=== PATIENT | female | born 1945 | race Hispanic/Latino ===

== ENCOUNTER 2022-11-20 18:39 | Observation (INO) | payer MEDICARE ==
[~2022-11-20] VITALS: Ht 154.9 cm; Wt 68.9 kg
[2022-11-20] MEDS ORDERED: HYDR25TA PO (19:25)
[2022-11-20] MEDS ORDERED: LISI40TA9 PO (19:25)
[2022-11-20] MEDS ORDERED: LABE200T7 PO (19:26)
[2022-11-20 19:51] LABS: BASOPHILS # (AUTO) 0.04 K/uL (0.00-0.20); BASOPHILS % (AUTO) 0.5 % (0.0-5.0); EOSINOPHILS # (AUTO) 0.05 K/uL (0.00-0.70); EOSINOPHILS % (AUTO) 0.6 % (0.0-8.0); HEMATOCRIT 40.3 % (36-48); IMMATURE GRANULOCYTE ABSOLUTE 0.03 K/uL (0-1); LYMPHOCYTES # (AUTO) 1.5 K/uL (1.0-4.8); LYMPHOCYTES % (AUTO) 17.4 % (21.0-51.0); MEAN CORPUSCULAR VOLUME 87.8 fL (79-99); MONOCYTES # (AUTO) 0.8 K/uL (0.1-1.0); MONOCYTES % (AUTO) 9.3 % (3.0-13.0); NEUTROPHILS # (AUTO) 6.4 K/uL (1.8-7.7); NEUTROPHILS % (AUTO) 71.9 % (40.0-77.0); PLATELET COUNT (AUTO) 222 K/uL (130-400); RED BLOOD CELL COUNT(AUTO) 4.59 MIL/uL (4.00-5.50); WHITE BLOOD COUNT (AUTO) 8.8 K/uL (4.8-10.8)
[2022-11-20 20:04] LABS: CREATININE 0.6 mg/dL (0.5-1.5); POTASSIUM 3.3 mmol/L (3.5-5.1)
[2022-11-20 20:22] LABS: B-TYPE NATRIURETIC PEPTIDE 13 pg/mL (0-100)
[2022-11-20 20:25] LABS: ALBUMIN 3.6 g/dL (3.5-5.0); BILIRUBIN,TOTAL 0.4 mg/dL (0.2-1.0); MAGNESIUM 1.9 mg/dL (1.80-2.40); TOTAL PROTEIN, SERUM 6.9 g/dL (6.0-8.3)
[2022-11-20] MEDS ORDERED: ASPIRIN 81MG CHEW TAB PO ONE (21:00)
[2022-11-20] MEDS ORDERED: ACETAMINOPHEN 325 MG TAB PO PRN ×2 (22:00)
[2022-11-20] MEDS ORDERED: MORPHINE 4 MG SYG IV PRN (22:00)
[2022-11-20] MEDS ORDERED: MORPHINE 2 MG SYG IV PRN (22:00)
[2022-11-20] MEDS ORDERED: ONDANSETRON 4MG INJ IV PRN (22:00)
[2022-11-20] MEDS ORDERED: IOHEXOL 350 MG/ML 100ML INFUS..BTL IV ONE (22:06)
[2022-11-20] MEDS ORDERED: MAGNESIUM 2GM PREMIX 50ML 50 ML IV PRN (23:30)
[2022-11-20] MEDS ORDERED: KCL 20 MEQ ERTAB PO PRN (23:30)
[2022-11-20] MEDS ORDERED: POTASSIUM CHLORIDE 10% ELIXIR 20 MEQ/15 ML UDCUP PO PRN (23:30)
[2022-11-20] MEDS ORDERED: POTASSIUM CHLORIDE 20MEQ/100ML 100 ML IV PRN (23:30)
[2022-11-20] MEDS: NITROGLYCERIN 1GM OINT 1 INCH/1GM TD SCH (23:36)
[2022-11-21 02:18] LABS: APPEARANCE,URINE CLEAR (CLEAR); BILIRUBIN,URINE NEGATIVE (NEGATIVE); COLOR,URINE LIGHT-YELLOW (YELLOW); GLUCOSE, URINE (UA) NEGATIVE (NEGATIVE); KETONES,URINE NEGATIVE (NEGATIVE); LEUKOCYTE ESTERASE ,URINE NEGATIVE Leu/uL (NEGATIVE); NITRATE,URINE NEGATIVE (NEGATIVE); OCCULT BLOOD,URINE NEGATIVE (NEGATIVE); PROTEIN,URINE NEGATIVE (NEGATIVE); UROBILINOGEN,URINE 0.2 mg/dL (0.2-1.0)
[2022-11-21 02:19] LABS: ADD UA MICROSCOPIC NO
[2022-11-21 02:20] VITALS: BP 127/53; PULSE 84; RESP 18
[2022-11-21 03:00] VITALS: O2SAT 98
[2022-11-21 04:00] VITALS: BP 136/69; PULSE 77; RESP 17
[2022-11-21] MEDS: NITROGLYCERIN 1GM OINT 1 INCH/1GM TD SCH (05:23)
[2022-11-21 06:55] LABS: BASOPHILS # (AUTO) 0.03 K/uL (0.00-0.20); BASOPHILS % (AUTO) 0.4 % (0.0-5.0); EOSINOPHILS # (AUTO) 0.05 K/uL (0.00-0.70); EOSINOPHILS % (AUTO) 0.7 % (0.0-8.0); HEMATOCRIT 38.3 % (36-48); IMMATURE GRANULOCYTE ABSOLUTE 0.03 K/uL (0-1); LYMPHOCYTES # (AUTO) 1.7 K/uL (1.0-4.8); LYMPHOCYTES % (AUTO) 21.5 % (21.0-51.0); MEAN CORPUSCULAR HEMOGLOBIN 29.5 pg (27.0-33.0); MEAN CORPUSCULAR HGB CONC 34.2 g/dL (32.0-36.0); MEAN CORPUSCULAR VOLUME 86.3 fL (79-99); MONOCYTES # (AUTO) 0.8 K/uL (0.1-1.0); MONOCYTES % (AUTO) 10.2 % (3.0-13.0); NEUTROPHILS # (AUTO) 5.1 K/uL (1.8-7.7); NEUTROPHILS % (AUTO) 66.8 % (40.0-77.0); PLATELET COUNT (AUTO) 208 K/uL (130-400); RED BLOOD CELL COUNT(AUTO) 4.44 MIL/uL (4.00-5.50); WHITE BLOOD COUNT (AUTO) 7.7 K/uL (4.8-10.8)
[2022-11-21 07:07] LABS: CREATININE 0.4 mg/dL (0.5-1.5); MAGNESIUM 2.1 mg/dL (1.80-2.40); PHOSPHORUS 3.8 mg/dL (2.5-4.9); POTASSIUM 3.8 mmol/L (3.5-5.1)
[2022-11-21 08:00] VITALS: BP 122/59; PULSE 77; RESP 16
[2022-11-21] MEDS ORDERED: ASPI-1197 PO (08:39)
[2022-11-21] MEDS ORDERED: ASPIRIN 81MG CHEW TAB PO SCH (09:00)
[2022-11-21] MEDS ORDERED: FAMOTIDINE 20MG TAB PO SCH (09:00)
[2022-11-21 10:21] VITALS: O2SAT 98
== END 2022-11-21 11:00 | disposition home or self-care (01) ==
LOC: EDH 18:39 → EDHIP 21:00 → INTOOBSV 21:00 → 4AH 11-21 02:13
PROVIDERS: ADMIT Internal Medicine; ATTEND Internal Medicine
DX: I20.0 Unstable angina (principal); E87.6 Hypokalemia; I10 Essential (primary) hypertension; Z86.12 Personal history of poliomyelitis; Z79.82 Long term (current) use of aspirin; Z79.899 Other long term (current) drug therapy
CPT/HCPCS: 96365; 99285; 82550; 83735 ×2; 84484 ×3; 80053; 83880; 85025 ×2; 36415 ×2; 71045; 71260; 74177; 93005 ×2; 96366; 84100; 80048; 86850; 86900; 86901; 81003; J3475; Q9967; G0378 ×3

== ENCOUNTER 2024-05-15 13:29 | Emergency (ER) | payer MEDICARE ==
[~2024-05-15] VITALS: Ht 157.5 cm; Wt 69.9 kg
[~2024-05-15 13:29] MED LIST: ASPI-1197 PO; HYDR25TA PO; LABE200T7 PO; LISI40TA9 PO
--- NOTE | 2024-05-15 13:53 | EKG ---
[facility] Test Date: 2024-05-15 Test Time: 13:25:57 Pat Name: HOLDEN JOHNSTON Department: ED Room: Gender: F Office Nurse: [id number] : 1945 Requested By: DAVID GIRARD Order Number: [id number] Reading MD: Vijay Ward Measurements Intervals [place] Rate: 87 P: 23 AR: 195 QRS: 95 QRSD: 130 T: -30 QT: 402 QTc: 483 Interpretive Statements Sinus rhythm RBBB and LPFB Compared to ECG 11/20/2022 21:01:31 Left posterior fascicular block now present Electronically Signed On 05-15-2024 17:45:27 STATISTICIAN MATHEMATICAL by Vijay Ward Please click the below link to view image of tracing.
[2024-05-15 14:38] LABS: BASOPHILS # (AUTO) 0.03 K/uL (0.00-0.20); BASOPHILS % (AUTO) 0.4 % (0.0-5.0); EOSINOPHILS # (AUTO) 0.04 K/uL (0.00-0.70); EOSINOPHILS % (AUTO) 0.5 % (0.0-8.0); IMMATURE GRANULOCYTE ABSOLUTE 0.02 K/uL (0-1); LYMPHOCYTES # (AUTO) 1.2 K/uL (1.0-4.8); LYMPHOCYTES % (AUTO) 16.8 % (21.0-51.0); MEAN CORPUSCULAR HEMOGLOBIN 29.1 pg (27.0-33.0); MEAN CORPUSCULAR HGB CONC 32.4 g/dL (32.0-36.0); MEAN CORPUSCULAR VOLUME 89.9 fL (79-99); MONOCYTES # (AUTO) 0.6 K/uL (0.1-1.0); MONOCYTES % (AUTO) 7.5 % (3.0-13.0); NEUTROPHILS # (AUTO) 5.5 K/uL (1.8-7.7); NEUTROPHILS % (AUTO) 74.5 % (40.0-77.0); PLATELET COUNT (AUTO) 220 K/uL (130-400); RED BLOOD CELL COUNT(AUTO) 4.67 MIL/uL (4.00-5.50); RED CELL DISTRIBUTION WIDTH 13.6 % (11.0-15.5); WHITE BLOOD COUNT (AUTO) 7.3 K/uL (4.8-10.8)
[2024-05-15 14:51] LABS: INR <= 0.93 (0.85-1.15)
[2024-05-15 14:56] LABS: CREATININE 0.4 mg/dL (0.5-1.0); POTASSIUM 3.6 mmol/L (3.5-5.1)
--- NOTE | 2024-05-15 14:56 | HMCIMG ---
CHEST 1VW REASON: sob COMPARISON: 11/20/2022 FINDINGS: Single view of the chest was obtained. Lungs are clear. Heart size is normal. There is no pulmonary vascular congestion. There is marked elevation of the right hemidiaphragm, unchanged. Mediastinum and bony thorax appear unremarkable. IMPRESSION: 1. Markedly elevated right hemidiaphragm, unchanged. 2. Otherwise normal exam.
[2024-05-15 15:02] LABS: MAGNESIUM 1.9 mg/dL (1.80-2.40)
[2024-05-15 15:41] LABS: B-TYPE NATRIURETIC PEPTIDE 86 pg/mL (0-100)
[2024-05-15] MEDS: LAbetaLOL 20MG SYG IV ONE (16:08)
[2024-05-15] MEDS: LAbetaLOL 20MG VIAL ONE (16:08)
[2024-05-15] MEDS: hydrALAZine 20MG/ML VIAL IV ONE (16:16)
[2024-05-15 16:40] VITALS: BP 166/64; PULSE 92; RESP 20; TEMP 97.9; O2SAT 98
--- NOTE | 2024-05-15 16:51 | ERN ---
General Chief Complaint: Hypertension Stated Complaint: HIGH BLOOD PRESSURE, CP Time Seen by MD: 13:32 Time Seen by Midlevel: 13:32 Source: patient History of Present Illness Initial Comments Patient is a 79-year-old female with a past medical history of hypertension presenting to the emergency department for evaluation of an elevated blood pressure reading that she obtained at home. Patient reports developing some upper back pain so she checked her blood pressure and it was 180 systolic. She normally takes amlodipine in the morning and lisinopril in the afternoon. She does report taking her medications as prescribed today. She does state that her manager math stopped her hydrochlorothiazide that she has been taking proximally two weeks ago. She believes that she may need this medication. Allergies: Coded Allergies: No Known Drug Allergies (Unverified Allergy, Unknown, 11/20/22) Home Meds Reported Medications Labetalol HCl (Labetalol HCl) 200 Mg Tablet, 200 MG PO BID, TAB 11/20/22 Lisinopril (Lisinopril) 40 Mg Tablet, 40 MG PO AM, TAB 11/20/22 Discontinued Reported Medications Hydrochlorothiazide (Hydrochlorothiazide) 25 Mg Tablet, 25 MG PO AM, TAB 11/20/22 Discontinued Scripts Aspirin (Aspirin) 81 Mg Tab.chew, 81 MG PO DAILY, #30 TAB.CHEW 0 Refills Prov:CRISTOBAL BUSTILLO Cherie SANTANAP 11/21/22 Past Medical History Past Medical History: Hypertension Past Surgical History: Appendectomy, Cholecystectomy Family History Family History: CAD, DM, HTN Social History Social History: Negative, Lives with family ROS Dictation CONSTITUTIONAL: Negative except for HPI HEAD/FACE: Negative except for HPI EENT: Negative except for HPI RESPIRATORY: Negative except for HPI GASTROINTESTINAL/ABDOMINAL: Negative except for HPI GENITOURINARY: Negative except for HPI MUSCULOSKELETAL: Negative except for HPI INTEGUMENTARY: Negative except for HPI NEUROLOGICAL/PSYCH: Negative except for HPI HEMATOLOGIC/LYMPHATIC: Negative except for HPI All Systems Negative, Except as noted above. 13 point review of systems assessed and all negative except for above. Physical Exam Physical Exam Dictation Vital Signs reviewed General Appearance: Alert, oriented x 3, no acute distress, well developed, nourished. Head and Face: non-traumatic. Eyes: PERRL, pink conjunctivas, eyelid no trauma, anterior chamber with arcus senilis. Ears: Pinnas intact and no signs of trauma or erythema ear canals clear and no discharge TM no erythema Nose: No discharge, no bleeding. Oropharynx: Mouth normal, tongue pink, pharynx clear,no erythema, tonsils no exudates, no abscesses noted, mucous membrane moist Neck: Supple, non-tender, no thyromegaly, no masses, no JVD, no bruits Breast:Deferred Chest:No tenderness, no crepitus, no paradoxical movement, no retractions Lungs:Clear, well-ventilated, symmetric, no rales, no wheezing, no rhonchi, no stridor, good breath sounds bilaterally Heart: Regular rate, regular rhythm, no murmur, no gallops Vascular: no peripheral edema, Abdomen: Soft, positive bowel sounds, nondistended, no guarding, nontender, no rebound, no masses no hepatomegaly, no splenomegaly, no Lr's sign, no hernias. Rectal: Deferred Genital: Deferred Neurological: Normal speech, motor function intact, sensory function intact Musculoskeletal: Neck nontender, full range of motion, back nontender, full range of motion, Extremities: nontender, full range of motion Skin: Color pink, dry, no turgor, no rash, no lacerations, no abrasions, no contusions. Lymphatic: Deferred Results Laboratory and Microbiology Lab and Micro Result Laboratory Tests Test 05/15/24 14:00 White Blood Count 7.3 K/uL (4.8-10.8) Red Blood Count 4.67 MIL/uL (4.00-5.50) Hemoglobin 13.6 g/dL (12.0-16.0) Hematocrit 42.0 % (36-48) Mean Corpuscular Volume 89.9 fL (79-99) Mean Corpuscular Hemoglobin 29.1 pg (27.0-33.0) Mean Corpuscular Hemoglobin Concent 32.4 g/dL (32.0-36.0) Red Cell Distribution Width 13.6 % (11.0-15.5) Platelet Count 220 K/uL (130-400) Mean Platelet Volume 10.2 fL (7.5-10.5) Immature Granulocyte % (Auto) 0.3 % (0-1) Neutrophils (%) (Auto) 74.5 % (40.0-77.0) Lymphocytes (%) (Auto) 16.8 % (21.0-51.0) L Monocytes (%) (Auto) 7.5 % (3.0-13.0) Eosinophils (%) (Auto) 0.5 % (0.0-8.0) Basophils (%) (Auto) 0.4 % (0.0-5.0) Neutrophils # (Auto) 5.5 K/uL (1.8-7.7) Lymphocytes # (Auto) 1.2 K/uL (1.0-4.8) Monocytes # (Auto) 0.6 K/uL (0.1-1.0) Eosinophils # (Auto) 0.04 K/uL (0.00-0.70) Basophils # (Auto) 0.03 K/uL (0.00-0.20) Absolute Immature Granulocyte (auto 0.02 K/uL (0-1) Nucleated Red Blood Cells 0.0 % (0.0-0.19) Prothrombin Time 10.0 SEC (9.6-11.6) Prothromb Time International Ratio <= 0.93 (0.85-1.15) Activated Partial Thromboplast Time 28.0 SEC (26.3-35.5) Sodium Level 143 mmol/L (136-145) Potassium Level 3.6 mmol/L (3.5-5.1) Chloride Level 107 mmol/L (101-111) Carbon Dioxide Level 30 mmol/L (21-32) Blood Urea Nitrogen 10 mg/dL (7-18) Creatinine 0.4 mg/dL (0.5-1.0) L Glomerular Filtration Rate Calc 101 mL/min (>90) Random Glucose 106 mg/dL (70-105) H Total Calcium 9.4 mg/dL (8.5-10.1) Magnesium Level 1.90 mg/dL (1.80-2.40) Total Creatine Kinase 85 U/L (21-232) Troponin I High Sensitivity < 4 ng/L (4-50) L B-Type Natriuretic Peptide 86 pg/mL (0-100) Labs Reviewed?: Yes MDM MDM: Patient is a 79-year-old female with a past medical history of hypertension presenting to the emergency department for evaluation of an elevated blood pressure reading that she obtained at home. Patient reports developing some upper back pain so she checked her blood pressure and it was 180 systolic. She normally takes amlodipine in the morning and lisinopril in the afternoon. She does report taking her medications as prescribed today. She does state that her manager math stopped her hydrochlorothiazide that she has been taking proximally two weeks ago. She believes that she may need this medication. On physical examination the patient was in no acute distress. Her initial vital signs reveal an initial blood pressure of 188/89. A cardiac workup was initiated. Her CBC is unremarkable. Her chemistries are unremarkable. Her cardiac enzymes are negative. Her EKG does not show any evidence of a STEMI or bundle branch blocks. Patient has remained asymptomatic in the emergency department. She was given 10 mg of hydralazine IV with improvement in blood pressure 166/64. Patient was offered admission for observation but she was refusing willing to be discharged home. Differential diagnosis: Hypertensive urgency, hypertensive emergency, uncontrolled hypertension There are no social concerns with this patient. Prescription drug management Prescriptions will include: None Medical management and examination interpretation discussions were had by me with other qualified healthcare professionals as indicated for the patient's care. ED Course Orders Procedure Category Date Status Time 12 Lead Ekg Tracing- EKG 05/15/24 Resulted Technical 13:33 Cbc With Differential LAB 05/15/24 Complete 13:33 Basic Metabolic Panel LAB 05/15/24 Complete 13:33 B-Type Natriuretic LAB 05/15/24 Complete Peptide 13:33 Creatine Kinase, Total LAB 05/15/24 Complete 13:33 Troponin I High LAB 05/15/24 Complete Sensitivity 13:33 Pt And Ptt LAB 05/15/24 Complete 13:33 Magnesium LAB 05/15/24 Complete 13:33 Chest 1vw RAD 05/15/24 Resulted 13:33 Labetalol 20mg Syg PHA 05/15/24 Complete (Trandate 20mg Syg) 16:00 Labetalol 20ml Vial PHA 05/15/24 Complete (Trandate 20mg Vial) 16:03 Hydralazine 20mg Inj PHA 05/15/24 Complete (Apresoline 20mg In 16:30 Current Medications Medications (Trade) Dose Ordered Sig/Dallin Route PRN Reason Start Time Stop Time Status Last Admin Dose Admin Hydralazine HCl (APRESOLine 20MG INJ) 10 mg ONCE ONCE IV 05/15/24 16:30 05/15/24 16:31 DC 05/15/24 16:16 Labetalol HCl (TRANdate 20MG SYG) 10 mg ONCE ONCE IV 05/15/24 16:00 05/15/24 16:04 DC Labetalol HCl (TRANdate 20MG VIAL) 100 mg STK-MED ONCE .ROUTE 05/15/24 16:03 05/15/24 16:03 DC Vital Signs Date Time Temp Pulse Resp B/P (MAP) Pulse Ox O2 Delivery O2 Flow Rate FiO2 05/15/24 16:40 97.9 92 20 166/64 98 Room Air* 0 21 05/15/24 15:51 97.9 88 20 180/79 98 Room Air* 0 21 05/15/24 14:52 97.9 90 20 188/89 98 Room Air* 0 21 05/15/24 13:47 97.9 90 20 188/89 98 Room Air [address] [address] IMAGING REPORT Signed PATIENT: HOLDEN FIGUEROA MR#: [id number] : 1945 SEX: F AGE: 79 LOCATION: [facility] ORDER 33 STATUS: REG ER REPORT#: [id number] SERVICE 32 REASON: sob ORDERING PHYSICIAN: DAVID GIRARD PROCEDURE: CXR1VW - CHEST 1VW CHEST 1VW REASON: sob COMPARISON: 11/20/2022 FINDINGS: Single view of the chest was obtained. Lungs are clear. Heart size is normal. There is no pulmonary vascular congestion. There is marked elevation of the right hemidiaphragm, unchanged. Mediastinum and bony thorax appear unremarkable. IMPRESSION: 1. Markedly elevated right hemidiaphragm, unchanged. 2. Otherwise normal exam. DICTATED BY: LYNNETTE FINN MD DATE: 05/15/241452 ELECTRONICALLY SIGNED BY: LYNNETTE FINN MD DATE: 05/15/241455 DX & DISP Disposition: Discharge Departure Impression: Primary Impression: Elevated blood pressure reading Condition: Stable Additional Instructions: Your blood work today is unremarkable. Your cardiac enzymes are negative. Your EKG does not show any evidence of a heart attack. You will need to follow up with your primary care doctor and manager math for possible blood pressure medication adjustment. Referrals: CINDI POSADA MD (PCP) Time of Disposition: 16:50 I have reviewed the case, and I agree with, Diagnosis and Plan I performed the substantive portion of the visit. I have reviewed and personally made and approve the management plan that is documented in the note by myself or the DEVI. I acknowledge for responsibility for the patient's management plan. DAVID GIRARD May 15, 2024 16:51
== END 2024-05-15 17:05 | disposition home or self-care (01) ==
LOC: EDH 13:29
DX: I10 Essential (primary) hypertension (principal); Z79.82 Long term (current) use of aspirin; Z79.899 Other long term (current) drug therapy; Z90.49 Acquired absence of other specified parts of digestive tract
CPT/HCPCS: 99285; 96374; 71045; 82550; 83735; 84484; 80048; 83880; 85025; 85610; 85730; 36415; 93005; J0360; J3490